=== PATIENT | male | born 1985 ===

== ENCOUNTER 2022-11-10 13:22 | Outpatient (CLI) | payer BC, SELFPAY ==
--- NOTE | ~2022-11-10 | MR_ITS ---
MRI of the left thumb CLINICAL HISTORY: Pain, skier's thumb TECHNIQUE: Axial T1-weighted and T2 fat-sat images, sagittal T1-weighted and T2 fat-sat images, and c oronal T1-weighted and proton-density fat-sat images of the left thumb were performed. FINDINGS: Bone marrow signals are unremarkable. No fracture or dislocation seen. Joint spaces are pre served. No joint effusion. Radial and ulnar collateral ligaments of the first metacarpophalangeal joint and of the interphalange al joint of the thumb, appear intact. No evidence of ligament injury/tear. There is mild edema of the abductor pollicis brevis and flexor pollicis brevis muscles near their distal insertions at the firs t MCP joint region. Remaining musculature appears intact. IMPRESSION: Low-grade muscle strain of the distal portion of the abductor pollicis brevis and flexor pollicis kaylie vis muscles near their distal insertions at the first MTP joint region. No ulnar collateral ligament tear. No fracture. Reviewed, dictated and finalized at location . IMPRESSION: Low-grade muscle strain of the distal portion of the abductor pollicis brevis a nd flexor pollicis brevis muscles near their distal insertions at the first MTP joint region. No ulnar collateral ligament tear. No fracture.
== END 2022-11-10 13:23 ==
LOC: GOSHIMG 13:24
DX: S63.642A Sprain of metacarpophalangeal joint of left thumb, initial encounter (principal); S66.912A Strain of unspecified muscle, fascia and tendon at wrist and hand level, left hand, initial encounter; T14.90XA Injury, unspecified, initial encounter
CPT/HCPCS: 73218